=== PATIENT | male | born 1995 | race Two or more races ===

== ENCOUNTER 2017-08-16 23:04 | Emergency (ER) | payer OTHER ==
[2017-08-16] MEDS ORDERED: Acetaminophen TAB* 325 MG PO ONE (23:26)
[2017-08-17] MEDS ORDERED: Oseltamivir CAP* 75 MG CAP PO ONE (00:06)
[2017-08-17] MEDS ORDERED: predniSONE TAB* 20 MG PO ONE (00:06)
--- NOTE | 2017-08-17 00:06 | ED ---
HPI Febrile Illness - HPI Summary HPI Summary: 22-year-old male who presents with fever for 2 days. He states last night he developed aches and then developed a headache. He admits to a dry cough and occasionally SOB. He admits to a mild sore throat. He denies any abdominal pain. Denies any nausea vomiting diarrhea. He goes to [place]. Has been taking Advil for his fever. Advil has been helping with the aches. He has a history of asthma. He denies any neck stiffness. He has had a normal appetite. He has been taking his inhaler more frequently. He admits to sinus congestion. - History of Current Complaint Chief Complaint: EDFever Time Seen by Provider: 08/16/17 23:19 Pain Intensity: 7 - Allergy/Home Medications Allergies/Adverse Reactions: Allergies Allergy/AdvReac Type Severity Reaction Status Date / Time No Known Allergies Allergy Verified 08/16/17 23:16 PMH/Surg Hx/FS Hx/Imm Hx Endocrine/Hematology History: Denies: Hx Anticoagulant Therapy Respiratory History: Reports: Hx Asthma - Immunization History Date of Influenza Vaccine: Pt did not receive Infectious Disease History: No Infectious Disease History: Denies: Traveled Outside the [place] in Last 30 Days - Family History Known Family History: Positive: Respiratory Disease - Social History Alcohol Use: None Substance Use Type: Reports: None Smoking Status (MU): Never Smoked Tobacco Review of Systems Positive: Fever, Fatigue Positive: Sore Throat, Nasal Discharge Negative: Chest Pain Positive: Shortness Of Breath, Cough All Other Systems Reviewed And Are Negative: Yes Physical Exam Triage Information Reviewed: Yes Vital Signs On Initial Exam: Initial Vitals Temp Pulse Resp BP Pulse Ox 100.6 F 96 16 137/65 98 08/16/17 23:13 08/16/17 23:13 08/16/17 23:13 08/16/17 23:13 08/16/17 23:13 Vital Signs Reviewed: Yes Appearance: Positive: Ill-Appearing - nontoxic Skin: Positive: Warm, Dry Head/Face: Positive: Normal Head/Face Inspection Eyes: Positive: Normal, EOMI, LIVE, Conjunctiva Clear ENT: Positive: Normal ENT inspection, Pharyngeal erythema, Nasal congestion, TMs normal, Uvula midline, Other - soft palate symmetric. Negative: Tonsillar swelling, Tonsillar exudate, Trismus, Muffled voice Neck: Positive: Supple, Nontender, No Lymphadenopathy. Negative: Nuchal Rigidity Respiratory/Lung Sounds: Positive: Clear to Auscultation, Breath Sounds Present Cardiovascular: Positive: Normal, RRR Abdomen Description: Positive: Nontender, Soft Bowel Sounds: Positive: Present Musculoskeletal: Positive: Normal Neurological: Positive: Normal Psychiatric: Positive: Normal Diagnostics - Vital Signs Vital Signs Temp Pulse Resp BP Pulse Ox 08/16/17 23:30 91 97 08/16/17 23:28 133/63 08/16/17 23:13 100.6 F 96 16 137/65 98 - Laboratory Lab Statement: Any lab studies that have been ordered have been reviewed, and results considered in the medical decision making process. Course/Dx - Course Course Of Treatment: 22-year-old male who presents with fever for 2 days. He states last night he developed aches and then developed a headache. He admits to a dry cough and occasionally SOB. He admits to a mild sore throat. He denies any abdominal pain. Denies any nausea vomiting diarrhea. He goes to [place]. Has been taking Advil for his fever. Advil has been helping with the aches. He has a history of asthma. He denies any neck stiffness. He has had a normal appetite. He has been taking his inhaler more frequently. He admits to sinus congestion. On exam lungs clear to auscultation. Pharynx erythematous with no tonsillar swelling. Abdomen soft nontender. We will treat presumptively for flu with tamiflu. Will give the steroids due to be asthmatic and having intermittent shortness of breath. Patient understands and agrees with plan. - Febrile Illness Differential Diagnoses: Pneumonia, Viremia, Other: - influenza - Diagnoses Provider Diagnoses: Febrile illness Discharge - Discharge Plan Condition: Good Disposition: HOME Prescriptions: Oseltamivir CAP* [Tamiflu CAP*] 75 mg PO BID #9 cap predniSONE TAB* [Deltasone TAB*] 50 mg PO DAILY #4 tab Patient Education Materials: Influenza (ED) Forms: *School Release Referrals: [facility] [place] [facility] [Outside] Additional Instructions: Symptoms likely flu will treat presumptively Take Tamiflu twice for 5 days first dose given in ED Take Tylenol and ibuprofen for muscle aches and fever every 6 hours Take steroid once a day for 4 days Take inhaler every 4-6 hours for cough Saline rinse can be used multiple times a day for nasal congestion Use humidifier in room or place bowls of warm water around room for cough Try to drink fluids every hour and eat a small snack every 3 hours Return to ED if develop any new or worsening symptoms
[2017-08-17 00:28] VITALS: BP 113/63
== END 2017-08-17 00:30 | disposition home or self-care (01) ==
LOC: ED 23:04
DX: R50.9 Fever, unspecified (principal)
CPT/HCPCS: 99283; A9270-GY; J7512